=== PATIENT | male | born 1940 | race Caucasian/White ===

== ENCOUNTER → 2019-03-09 | Outpatient (CLI) | payer MEDICARE | END | disposition home or self-care (01) | LOC: PCVCCLINIC 15:00 | PROVIDERS: ATTEND Internal Medicine | DX: R06.09 Other forms of dyspnea (principal); R53.83 Other fatigue; J44.9 Chronic obstructive pulmonary disease, unspecified; R00.1 Bradycardia, unspecified | CPT/HCPCS: 36415; 80061; 93005; G0463 ==

== ENCOUNTER → 2019-04-09 | Outpatient (CLI) | payer MEDICARE ==
[~2019-04-09] MED LIST: REGADENOSON 0.4 MG/5 ML DISP.SYRIN. IV ONE
--- NOTE | 2019-04-10 15:33 | PCVCIMAG ---
APPROVED REPORT Study performed: 04/09/2019 08:20:42 EXAM: Comprehensive 2D, Doppler, and color-flow Echocardiogram Patient Location: Echo lab Room #: 2Status: routine BSA: 2.19 HR: 60 bpmBP: 132/70 mmHg Rhythm: NSR Other Information Study Quality: Good Indications COPD Bradycardia Dyspnea Fatigue Increasing dyspnea with minimal exertion 2D Dimensions IVSd: 10.13 (7-11mm)LVOT Diam: 23.09 (18-24mm) LVDd: 52.68 mm PWd: 7.03 (7-11mm)Ascending Ao: 33.85 (22-36mm) LVDs: 22.86 (25-40mm) Left Atrium: 33.85 (27-40mm) Aortic Root: 30.51 mm LV Single Plane 4CH: 58.93 % LV Single Plane 2CH: 68.02 % Biplane EF: 64.5 % Volumes Left Atrial Volume (Systole) Single Plane 4CH: 59.48 mLSingle Plane 2CH: 75.87 mL Biplane LA Volume: 73.00 mLLA ESV Index: 33.00 mL/m2 Aortic Valve AoV Peak Bryn.: 1.57 m/s AO Peak Gr.: 9.87 mmHgLVOT Max P.10 mmHg LVOT Max V: 1.01 m/s ALMA Vmax: 2.70 cm2 AI Vmax: 4.18 m/s AI [place]: 2.15 m/s2 AI PHT: 563.60 ms Mitral Valve E/A Ratio: 1.9 MV Decel. Time: 190.47 ms MV E Max Bryn.: 0.85 m/s MV A Bryn.: 0.45 m/s TDI E/Lateral E': 10.63E/Medial E': 10.63 Medial E' Bryn.: 0.08 m/s Lateral E' Bryn.: 0.08 m/s Pulmonary Valve PV Peak Bryn.: 1.12 m/sPV Peak Gr.: 4.98 mmHg Pulmonary Vein P Vein S: 0.54 m/sP Vein A: 0.27 m/s P Vein D: 0.53 m/sP Vein A Dur.: 90.0 msec P Vein S/D Ratio: 1.02 Tricuspid Valve TR Peak Bryn.: 2.42 m/s TR Peak Gr.: 23.34 mmHg TV Vmax: 0.64 m/sPA Pressure: 30.00 mmHg Left Ventricle The left ventricle is normal size. There is normal LV segmental wall motion. There is normal left ventricular wall thickness. Left ventricular systolic function is normal. The left ventricular ejection fraction is within the normal range. LVEF is 60-65%. The left ventricular diastolic function is normal. Right Ventricle The right ventricle is normal size. The right ventricular systolic function is normal. Atria The left atrium size is normal. The right atrium size is normal. Aortic Valve Aortic valve is trileaflet. Mild aortic valve sclerosis. Mild to moderate aortic regurgitation. There is no aortic valvular stenosis. Mitral Valve The mitral valve is normal in structure. Trace mitral regurgitation. No evidence of mitral valve stenosis. Tricuspid Valve The tricuspid valve is normal in structure. Mild tricuspid regurgitation with a PA pressure of 30 mmHg. Mild pulmonary hypertension. Pulmonic Valve The pulmonary valve is normal in structure. There is no pulmonic valvular regurgitation. Great Vessels The aortic root is normal in size. The ascending aorta is normal in size. Aortic arch is normal in caliber. IVC is normal in size and collapses >50% with inspiration. Pericardium There is no pericardial effusion. There is no pleural effusion. <Conclusion> The left ventricle is normal size. LVEF is 60-65%. Aortic valve is trileaflet. Mild aortic valve sclerosis. Mild to moderate aortic regurgitation. The mitral valve is normal in structure. Trace mitral regurgitation. The tricuspid valve is normal in structure. Mild tricuspid regurgitation with a PA pressure of 30 mmHg. Mild pulmonary hypertension. The pulmonary valve is normal in structure. There is no pericardial effusion.
--- NOTE | 2019-04-10 20:42 | PCVCIMAG ---
APPROVED REPORT Imaging Protocol: Rest Tc-99m/Stress Tc-99m 1 day Study performed: 04/09/2019 08:54:42 Indication: Dyspnea, Fatigue Patient Location: Out-Patient Stress Nurse: Sophia Mcdowell RN, Trinity Finley RN ND Tech:Loni Ahumadasean [facility] Ht: 5 ft 9 in Wt: 230 lbs BSA: 2.19 m2 HR: 59 bpm BP: 124/60 mmHg BMI: 33.96 Rhythm: Sinus Bradycardia with T wave abnormalities Medical History Medical History: COPD Medications: Zyrtec, Cardura, ADvair, Singulair Allergies: No known drug allergies Cardiac Risk Factors: Age Pretest Chest Pain Characteristics: No chest pain Exercise History: Sedentary Physical Disabilities: SOA Resting Data Rest SPECT myocardial perfusion imaging was performed in supine position 45 minutes following the intravenous injection of 10.6 mCi of Tc-99m Sestamibi. Time of rest injection: 914 Date: 04/09/2019 Administration Route: IV Administration Site: Right AC Pharmacologic Stress Pharmacologic stress test was performed by injecting Regadenoson 0.4 mg IV push over 10-15 seconds immediately followed by the intravenous injection of 34.9 mCi of Tc-99m Sestamibi. Time of stress injection: 5 Date: 04/09/2019 Administration Route: IV Administration Site: Right AC Gated Stress SPECT was performed 45 minutes after stress injection. The images were gated to evaluate regional wall motion and calculate left ventricular ejection fraction. Stress Test Details Stress Test: Pharmacologic stress testing performed using 0.4 mg of regadenoson per 5 mL given IV over 10 seconds. Reason for pharmacologic stress test: severe dyspnea. HRMax Heart Rate (APMHR): 143 bpm Resting HR: 59 bpmTarget HR (85% APMHR): 121 bpm Max HR Achieved: 89 bpm % of APMHR: 62 Recovery HR: 67 bpm BP Resting BP: 124/60 mmHg Max BP: 124/68 mmHg Recovery BP: 112/56 mmHg ECG Resting ECG: Sinus Bradycardia with T wave abnormalities Stress ECG: Sinus Rhythm with T wave abnormalities Arrhythmia: None Recovery ECG: Sinus Rhythm with T wave abnormalities Clinical Reason for Termination: Completed protocol Stress Symptoms: Dyspnea Symptoms resolved during recovery. Stress ECG Conclusion 1. adequate response to iv lexiscan 2. inadequate heart rate for ecg diagnosis Study Data Post stress, the left ventricular ejection was 71%.. SSS: 0 SRS: 0 SDS: 0 TID = 1.04. Perfusion There is a medium area of moderately reduced uptake in the mid and apical segment of the anterolateral wall which is seen on the stress images and improves on the resting images. Wall Motion Normal left ventricular wall motion. Nuclear Conclusion ECG Findings: non-diagnostic Clinical Findings: negative for ischemia Nuclear Findings: positive for ischemia Exercise Capacity: not assessed 1. intermediate risk study based on evidence of inducible ischemia involving the anterior lateral wall <Conclusion> 1. adequate response to iv lexiscan 2. inadequate heart rate for ecg diagnosis
== END | disposition home or self-care (01) ==
LOC: PCVCIMAG 08:19
PROVIDERS: ATTEND Internal Medicine
DX: Z01.812 Encounter for preprocedural laboratory examination (principal); I08.2 Rheumatic disorders of both aortic and tricuspid valves; J44.9 Chronic obstructive pulmonary disease, unspecified; R00.1 Bradycardia, unspecified; R53.83 Other fatigue; R06.09 Other forms of dyspnea
CPT/HCPCS: 36415; 78452; 93017; 93306; A9500; G0463; J2785

== ENCOUNTER 2019-04-20 06:45 | Outpatient (CLI) | payer MEDICARE ==
[~2019-04-20] VITALS: Ht 176.5 cm; Wt 104.3 kg
[2019-04-20] VITALS (10 sets, daily range): BP systolic 98–128; BP diastolic 58–74
[2019-04-20] MEDS ORDERED: FERR325T14 PO (07:11)
[2019-04-20] MEDS ORDERED: FLUT1DIS IH (07:11)
[2019-04-20] MEDS ORDERED: MONT10TA49 PO (07:11)
[2019-04-20] MEDS ORDERED: OMEP20TA63 PO (07:11)
[2019-04-20] MEDS ORDERED: DOXA4TAB3 PO (07:11)
[2019-04-20] MEDS ORDERED: ASPIRIN CHEWABLE 81 MG TABLET. PO ONE (07:15)
[2019-04-20] MEDS ORDERED: LIDOCAINE 1% Multi-Dose 20 ML VIAL. ONE (07:38)
[2019-04-20 07:39] LABS: RED BLOOD COUNT 5.31 x10^6/uL (4.30-5.70); RED CELL DISTRIBUTION WIDTH 15.8 % (11.5-14.5); WHITE BLOOD COUNT 8.6 x10^3/uL (4.0-11.0)
[2019-04-20] MEDS ORDERED: IODIXANOL 320 MG/ML 100 ML VIAL. ONE (07:42)
--- NOTE | 2019-04-20 07:43 | EKG ---
[facility] [address] [place] [address] Test Date: 2019-04-20 Test Time: 07:37:38 Pat Name: THIAGO BANKS Department: Room: Gender: Income Tax Auditor: : 1940 Requested By: LOCO BERNARD Order Number: [id number] Reading MD: Parker Macias Measurements Intervals [place] Rate: 112 P: NC: QRS: -1 QRSD: 76 T: -31 QT: 326 QTc: 447 Interpretive Statements ATRIAL FIBRILLATION LEFTWARD AXIS Electronically Signed On 05-21-2019 12:11:20 CDT by Parker Macias
[2019-04-20 07:54] LABS: CALCIUM 8.5 mg/dL (8.5-10.1); CREATININE 1.3 mg/dL (0.7-1.3); GFR 53.5; POTASSIUM 4.1 mmol/L (3.5-5.1)
[2019-04-20] MEDS ORDERED: ASPIRIN CHEWABLE 81 MG TABLET. ONE ×2 (08:26→08:48)
[2019-04-20] MEDS ORDERED: fentaNYL PF VIAL 100 MCG/2 ML VIAL ONE (09:00)
[2019-04-20] MEDS ORDERED: MIDAZOLAM HCL/PF 2 MG/2 ML VIAL. ONE (09:01)
[2019-04-20] MEDS ORDERED: ADENOSINE 90 MG/30 ML VIAL. IV ONE (09:16)
[2019-04-20] MEDS ORDERED: HEPARIN for IV BOLUS 10,000 UNIT/10 ML VIAL. ONE (09:32)
[2019-04-20] MEDS ORDERED: IODIXANOL 320 MG/ML 100 ML VIAL. IART ONE (09:45)
[2019-04-20] MEDS ORDERED: HEPARIN for IV BOLUS 10,000 UNIT/10 ML VIAL. IV ONE (09:45)
[2019-04-20] MEDS ORDERED: ADENOSINE 90 MG in IV NORMAL SALINE 50ML 90 ML IV ONE (09:45)
[2019-04-20] MEDS ORDERED: LIDOCAINE 1% Multi-Dose 20 ML VIAL. INJ ONE (09:45)
[2019-04-20] MEDS ORDERED: MIDAZOLAM HCL/PF 2 MG/2 ML VIAL. IV ONE (09:45)
[2019-04-20] MEDS ORDERED: IV NORMAL SALINE 1000ML BAG 1,000 ML IV SCH (10:00)
[2019-04-20] MEDS ORDERED: 0.9 % SODIUM CHLORIDE 10 ML DISP.SYRIN. IV PRN ×2 (10:00)
--- NOTE | 2019-04-20 10:00 | NUR ---
Per Dr. Shukla, nurse at office will give patient instruction and medication orders for new found A.Fib. Patient and family has been instructed from Dr. Shukla to stop by office on the way home for medication and instructions. Patient and family has verbalized understanding.
--- NOTE | 2019-04-20 12:48 | NUR ---
Discharge Note: THIAGO BANKS Discharge instructions and discharge home medications reviewed with Patient and a copy given. All questions have been answered and understanding verbalized. The following instructions and handouts were given: Groin site care, sedation. Pt reminded to stop and Dr Shukla's office on way home. Discontinued lines and drains: SL dc'd intact. Dressing to R groin dry and intact, no bleeding. Patient discharged to home with and son via wheelchair GWENDOLYN LYNCH Addendum: 04/20/19 at 1250 by DEANDRE ESCALANTE RN Amended: Links added.
--- NOTE | 2019-04-30 12:42 | CARD ---
MR#: [id number] Date of Study: 04/20/2019 Ordering Physician: LOCO SHUKLA, Referring Physician: LOCO SHUKLA, Tech: CECI BRYAN RTR APPROVED REPORT Technologist: CECI BRYAN RTR Nurse: Azul Arcos R.N. Procedure(s) performed: MODERATE SEDATION TIME: 51 MINUTES FLUORO TIME: 7.9 MIN DOSE: 106 GYCM2 CONTRAST: 117 Left heart catheterization Selective left and right coronary angiography Measurement of left ventricular end-diastolic pressure Fractional flow reserve assessment across the left anterior descending artery measuring 0.94 supervision of conscious sedation HISTORY The patient is a 78 year-old male with a history of : hypertension, Chest pains paroxysmal atrial fib rillation and abnormal perfusion scan. INDICATION The indication(s) include : positive stress test, atrial fibrillation, Chest pain. [facility] Clinical Frailty Scale [facility] Clinical Frailty Scale: Managing Well Heart Failure Heart Failure: No CASE TECHNIQUE The patient was brought electively into the cardiac catheterization lab. A timeout was performed conf irming the patient's name, date of , procedure, and site of procedure. All necessary parties wer e wearing the appropriate personal protective equipment and radiation monitoring devices. After expla ining the risks and benefits of the procedure, informed consent was obtained.(See nursing notes for m edications administered). The right groin was sterilely prepped and draped. The right femoral groin w as infiltrated with 1% Lidocaine subcutaneous anesthesia. During this case, Fluoroscopy and standard protocol contrast were used for imaging. A 5 Turkish sheath was inserted into the right femoral artery without difficulty. Coronary angiography was performed using coronary diagnostic catheters. The left coronary system was accessed and visualized with a Diagnostic catheter. The right coronary system wa s accessed and visualized with a Diagnostic catheter. The left ventricle was accessed and visualized with a Diagnostic catheter. Left ventricular/Aortic Valve gradient assessed on pullback. PROCEDURE NARRATIVE Following angiography question of proximal left anterior descending coronary artery lesion was noted. An determination to proceed with fractional flow reserve analysis was made. Description of this proc edure is described below. Coronary Angiography The patient's coronary anatomy is right dominant. The left main coronary artery is a medium size vessel with mild irregularities noted but no significa nt high-grade lesions. Bifurcates left anterior descending left circumflex.. The left anterior descending artery is a small size vessel with proximal regions of irregularity and a focal site that appears to be napkin ring lesion. Flow does not appear to be limited through this a nikolay.. There is a 55% stenosis in the proximal segment. The first diagonal branch is a small size vess el with intimal irregularities. The circumflex artery is a medium size vessel with intimal irregularities. The first obtuse marginal branch is a medium size vessel with intimal irregularities. The right coronary artery is a medium size vessel with moderate region of irregularities through the distal proximal and proximal mid RCA. does not appear to be flow limiting. The right posterolateral b ranch is a small size vessel with intimal irregularities. IVUS Fractional Flow [place] was performed on the proximal left anterior descending artery segment vessel. A 6 Turkish JL4 Guide Catheter was used to engage the left coronary ostium. A 0.014 FFR Interventiona l Guidewire was used. FINDINGS FFR was performed utilizing adenosine infusion yielded a FFR of 0.94 at its lowest recording COMMENTS No significant stenosis identified by FFR Conclusion 1. 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 Normal hemodynamics 3. Non-ischemic fractional flow reserve of the left anterior descending artery Recommendations Cardiac Risk Reduction Program Medical Therapy Signed by : Loco Shukla, Electronically Approved : 04/30/2019 12:41:46
== END 2019-04-20 12:40 | disposition home or self-care (01) ==
LOC: CCL 06:45
PROVIDERS: ATTEND Internal Medicine
DX: I25.10 Atherosclerotic heart disease of native coronary artery without angina pectoris (principal); I10 Essential (primary) hypertension; I48.0 Paroxysmal atrial fibrillation; Z79.01 Long term (current) use of anticoagulants
CPT/HCPCS: 36415; 80048; 85027; 85347; 85610; 93005; 93458; 93571; 99152; 99153; C1760; C1769; C1887; C1892; J0153; J1644; J2250; Q9967; G0269; C1771